=== PATIENT | male | born 1990 | race Caucasian/White ===

== ENCOUNTER 2020-05-17 08:12 | Emergency (ER) | payer BC ==
[~2020-05-17] VITALS: Ht 182.9 cm; Wt 97.5 kg
[2020-05-17 08:21] VITALS: BP 149/79
--- NOTE | 2020-05-17 08:23 | NUR ---
patient self present to ER fpr sore throat, difficulty breathing worst today. The patient is in ER bed #1. AAO x4. Denies pain. In room air. Respration regular and unlabored. Will continue to monitor the patient.
--- NOTE | 2020-05-17 08:28 | NUR ---
AT THE BEDSIDE.
--- NOTE | 2020-05-17 08:43 | NUR ---
Throat swab done and sent it to the lab.
[2020-05-17] MEDS ORDERED: LIDOCAINE VISCOUS 2% UD 15 ML UDC ONE (08:47)
[2020-05-17] MEDS ORDERED: LIDOCAINE VISCOUS 2% UD 15 ML UDC MM ONE (09:00)
== END 2020-05-17 10:40 | disposition home or self-care (01) ==
LOC: ER 08:16
DX: J02.9 Acute pharyngitis, unspecified (principal)
CPT/HCPCS: 86403-TC; 87070-TC